=== PATIENT | female | born 1985 | race Asian ===

== ENCOUNTER 2022-11-20 19:40 | Inpatient (IN) | payer OTHER ==
[2022-11-20] MEDS: ELECTROLYTE-148 SOLN 1,000 ML IV SCH (20:00)
[2022-11-20] MEDS ORDERED: DINOPROSTONE 10 MG VAGINAL SUPPOSITORY VG ONE (21:00)
[2022-11-20 21:27] VITALS: BMI 36.6
[2022-11-21] MEDS: ELECTROLYTE-148 SOLN 1,000 ML IV SCH (06:15)
[2022-11-21] MEDS: DEXTROSE 5%-LACTATED RINGERS 1,000 ML IV SCH (09:50)
[2022-11-21] MEDS ORDERED: OXYTOCIN 30 UNITS in 0.9% NS 30 UNIT/500 ML INFUS.BAG IVPB ONE (09:59)
[2022-11-21] MEDS: OXYTOCIN 30 UNITS in 0.9% NS 30 UNIT/500 ML INFUS.BAG IVPB SCH (10:05)
[2022-11-21] MEDS ORDERED: FENTANYL CITRATE/PF 50 MCG/ML VIAL ONE (21:27)
[2022-11-21] MEDS ORDERED: morphine SULFATE/PF 1 MG/2 ML (2cc Syringe - QUVA) ONE (21:27)
[2022-11-21] MEDS ORDERED: OXYTOCIN 10 UNITS/ML VIAL ONE (21:27)
[2022-11-21] MEDS ORDERED: ceFAZolin SODIUM 1 GM VIAL ONE (21:27)
[2022-11-21] MEDS ORDERED: ONDANSETRON 4 MG/2 ML VIAL ONE (21:27)
[2022-11-21] MEDS ORDERED: KETOROLAC TROMETHAMINE 30 MG/1 ML VIAL ONE (21:27)
[2022-11-21] MEDS ORDERED: ePHEDrine SULFATE 50 MG/1 ML AMPULE ONE (21:56)
[2022-11-21] MEDS ORDERED: ONDANSETRON 4 MG/2 ML VIAL IVPUSH PRN (23:03)
[2022-11-22] MEDS ORDERED: KETOROLAC TROMETHAMINE 30 MG/1 ML VIAL IVPB PRN (00:13)
[2022-11-22] MEDS ORDERED: ACETAMINOPHEN 1000 MG/100 ML BAG IVPB PRN ×3 (00:14→13:07)
[2022-11-22] MEDS ORDERED: SENNOSIDES/DOCUSATE COMBO (SENNA PLUS) TABLET (UD) PO PRN (00:39)
[2022-11-22] MEDS ORDERED: IBUPROFEN 600 MG TABLET (FP) PO PRN (00:39)
[2022-11-22] MEDS ORDERED: ACETAMINOPHEN 325 MG TABLET (FP) PO PRN (00:39)
[2022-11-22] MEDS ORDERED: ONDANSETRON 4 MG/2 ML VIAL IVPB PRN (00:39)
[2022-11-22] MEDS ORDERED: oxyCODONE HCL 5 MG TABLET PO PRN ×3 (00:39→23:00)
[2022-11-22] MEDS ORDERED: IBUPROFEN 800 MG/8 ML IJ IVPB PRN ×2 (00:39→13:06)
[2022-11-22] MEDS ORDERED: OXYTOCIN 20 UNITS in 0.9% NS 20 UNIT/1,000 ML INFUS.BAG IV SCH (00:45)
[2022-11-22] MEDS ORDERED: ACETAMINOPHEN 500 MG TABLET (FP) PO PRN (13:07)
[2022-11-22] MEDS: ELECTROLYTE-148 SOLN 1,000 ML IV SCH ×2 (20:44→20:45)
[2022-11-22] MEDS: DEXTROSE 5%-LACTATED RINGERS 1,000 ML IV SCH (20:46)
[2022-11-22] MEDS: OXYTOCIN 30 UNITS in 0.9% NS 30 UNIT/500 ML INFUS.BAG IVPB SCH (20:46)
[2022-11-22] MEDS: IBUPROFEN 600 MG TABLET (FP) PO PRN (20:59)
[2022-11-22] MEDS: SIMETHICONE 80 MG TAB.CHEW (FP) PO PRN (20:59)
[2022-11-23] MEDS ORDERED: IBUPROFEN 600 MG TABLET (FP) PO PRN ×2 (00:39)
[2022-11-23] MEDS ORDERED: BISACODYL 10 MG SUPP.RECT RC PRN (00:39)
[2022-11-23] MEDS: IBUPROFEN 600 MG TABLET (FP) PO PRN ×3 (08:02→19:51)
[2022-11-23 08:16] LABS: HEMATOCRIT 28.5 % (32.4-45.2); HEMOGLOBIN 9.7 GM/dL (10.7-15.3); MCHC 33.8 g/dl (32.0-36.0); MEAN CELL VOLUME 97.4 fl (80-96); MEAN PLT VOLUME 7.5 fl (7.5-11.1); PLATELET COUNT 208 10^3/uL (134-434); RBC 2.93 M/mm3 (3.60-5.2); RDW 13.9 % (11.6-15.6); WHITE BLOOD COUNT 20.2 K/mm3 (4.0-10.0)
[2022-11-23 09:15] LABS: ANISOCYTOSIS 0; HELMET CELLS 0; HOWELL-JOLLY BODIES 0; MACROCYTOSIS 0; OVALOCYTE 0; ROULEAU 0; SICKELED CELLS 0; TARGET CELLS 0; TEAR DROP CELLS 0; TOXIC GRANULATION 0
[2022-11-23] MEDS: FERROUS SO4 325 MG TABLET (FP) PO SCH ×2 (10:47→22:12)
[2022-11-23] MEDS: DOCUSATE SODIUM 100 MG CAPSULE (FP) PO SCH ×3 (10:47→22:12)
[2022-11-23] MEDS: SIMETHICONE 80 MG TAB.CHEW (FP) PO PRN (19:51)
[2022-11-23 22:14] VITALS: RESP 18
[2022-11-24] MEDS: DOCUSATE SODIUM 100 MG CAPSULE (FP) PO SCH ×2 (05:36→13:24)
[2022-11-24] MEDS: SIMETHICONE 80 MG TAB.CHEW (FP) PO PRN ×2 (05:36→11:32)
[2022-11-24 07:11] LABS: BASO % 0.3 % (0-2.0); HEMATOCRIT 26.4 % (32.4-45.2); HEMOGLOBIN 9.1 GM/dL (10.7-15.3); LYMPH % 9.3 % (8-40); MCH 33.6 pg (25.7-33.7); MCHC 34.4 g/dl (32.0-36.0); MEAN CELL VOLUME 97.5 fl (80-96); MEAN PLT VOLUME 7.6 fl (7.5-11.1); MONO % 8.6 % (3.8-10.2); NEUT % 80.8 % (42.8-82.8); PLATELET COUNT 225 10^3/uL (134-434); RBC 2.71 M/mm3 (3.60-5.2); RDW 13.9 % (11.6-15.6); WHITE BLOOD COUNT 16.7 K/mm3 (4.0-10.0)
[2022-11-24 11:32] VITALS: BP 102/65; PULSE 80; TEMP 98.4
[2022-11-24] MEDS: IBUPROFEN 600 MG TABLET (FP) PO PRN (11:32)
[2022-11-24] MEDS: FERROUS SO4 325 MG TABLET (FP) PO SCH (11:32)
== END 2022-11-24 13:35 | disposition home or self-care (01) | DRG 788 ==
LOC: JLDR 19:40 → J3W 11-21 23:56
PROVIDERS: ADMIT Specialist; ATTEND Specialist
PROC: 10D00Z1 Extraction of Products of Conception, Low, Open Approach (ICD-10-PCS; principal; 2022-11-21)
DX: O62.0 Primary inadequate contractions (principal); O32.4XX0 Maternal care for high head at term, not applicable or unspecified; Z3A.39 39 weeks gestation of pregnancy; Z37.0 Single live birth
CPT/HCPCS: 36415; 85025; 88307-TC